=== PATIENT | male | born 2000 | race Caucasian/White ===

== ENCOUNTER 2019-01-09 03:26 | Emergency (ER) | payer MEDICAID ==
[~2019-01-09] VITALS: Ht 170.2 cm; Wt 72.7 kg
[2019-01-09 03:29] VITALS: Ht 170.2 cm; Wt 72.7 kg
--- NOTE | 2019-01-09 03:29 | ERD ---
ER Documentation Chief Complaint Chief Complaint The patient is a 18-year-old male, presenting to the ER from home because of ankle intoxication. He is either unable to provide history or he does not with the provided history. He is awake but intoxicated. According to the EMS the parents called 911 and he is simply intoxicated Medical/surgical history/social history/review of system: Unable to obtain because patient did not cooperate ROS All systems reviewed and are negative except as per history of present illness. Allergies Allergies: Coded Allergies: No Known Allergy (Unverified , 01/09/19) Physical Exam Vitals Vital Signs Date Temp Pulse Resp B/P (MAP) Pulse Ox O2 O2 Flow FiO2 Time Delivery Rate 01/09/19 81 14 113/68 98 Room Air 05:18 (83) 01/09/19 97.1 80 15 94/60 (71) 95 03:29 Physical Exam Const: No acute distress Head: Atraumatic Eyes: Normal Conjunctiva ENT: Normal External Ears, Nose and Mouth. Neck: Full range of motion. No meningismus. Resp: Clear to auscultation bilaterally Cardio: Regular rate and rhythm, no murmurs Abd: Soft, non tender, non distended. Normal bowel sounds Skin: No petechiae or rashes Back: No midline or flank tenderness Ext: No cyanosis, or edema Neur: Awake. Limited exam Psych: Unable to perform due to his condition, intoxicated Result Diagram: 01/09/19 0350 01/09/19 0350 Results 24 hrs Laboratory Tests Test 01/09/19 03:50 White Blood Count 9.8 10^3/ul Red Blood Count 5.26 10^6/ul Hemoglobin 15.6 g/dl Hematocrit 45.9 % Mean Corpuscular Volume 87.3 fl Mean Corpuscular Hemoglobin 29.7 pg Mean Corpuscular Hemoglobin Concent 34.0 g/dl Red Cell Distribution Width 11.3 % Platelet Count 304 10^3/UL Mean Platelet Volume 9.2 fl Immature Granulocytes % 0.500 % Neutrophils % 58.0 % Lymphocytes % 34.3 % Monocytes % 6.3 % Eosinophils % 0.4 % Basophils % 0.5 % Nucleated Red Blood Cells % 0.0 /100WBC Immature Granulocytes # 0.050 10^3/ul Neutrophils # 5.7 10^3/ul Lymphocytes # 3.4 10^3/ul Monocytes # 0.6 10^3/ul Eosinophils # 0.0 10^3/ul Basophils # 0.1 10^3/ul Nucleated Red Blood Cells # 0.0 10^3/ul Sodium Level 148 mmol/L Potassium Level 3.9 mmol/L Chloride Level 109 mmol/L Carbon Dioxide Level 26 mmol/L Anion Gap 13 Blood Urea Nitrogen 13 mg/dl Creatinine 1.20 mg/dl Est Glomerular Filtrat Rate mL/min > 60 mL/min Glucose Level 108 mg/dl Calcium Level 8.9 mg/dl Total Bilirubin 0.1 mg/dl Direct Bilirubin 0.00 mg/dl Indirect Bilirubin 0.1 mg/dl Aspartate Amino Transf (AST/SGOT) 31 IU/L Alanine Aminotransferase (ALT/SGPT) 22 IU/L Alkaline Phosphatase 67 IU/L Total Protein 7.5 g/dl Albumin 4.7 g/dl Globulin 2.80 g/dl Albumin/Globulin Ratio 1.67 Salicylates Level < 1.0 mg/dl Acetaminophen Level < 10.0 ug/ml Ethyl Alcohol Level 205.0 mg/dl Procedures/MDM MEDICAL MAKING DECISION: The patient is a 18-year-old male, presenting with acute alcohol intoxication. he is treated w/ 1 L normal saline for clinical dehydration The differential diagnoses considered include but are not limited to substance abuse, electrolyte imbalance, psychiatric illness Departure Diagnosis: Primary Impression: Alcoholic intoxication Additional Impression: Dehydration Condition: Stable Comments He will be signing out to Dr Flaherty, pending [email or web address] Del Angel MD Jan 09, 2019 03:29
[2019-01-09] MEDS ORDERED: SOD CHLORIDE 0.9% 1,000 ML IV ONE (06:00)
[2019-01-09 11:45] VITALS: BP 123/69; PULSE 65; RESP 17
== END 2019-01-09 12:24 | disposition home or self-care (01) ==
LOC: E/R 03:26
DX: F10.129 Alcohol abuse with intoxication, unspecified (principal); E86.0 Dehydration
CPT/HCPCS: 36415; 80053; 80307; 81003; 85025; J7030; Z7502